=== PATIENT | male | born 1975 | race Caucasian/White ===

== ENCOUNTER 2018-12-30 10:35 | Day surgery (SDC) | payer OTHER ==
[~2018-12-30] VITALS: Ht 177.8 cm; Wt 102.0 kg
[~2018-12-30 10:35] MED LIST: LIDOCAINE 1% MDV 20ML VIAL SQ PRN; LIDOCAINE 2% INJ 100 MG/5 ML SDV (FOR ANES.) As Ordered ONE; LR 1,000 ML IV ONE; PROPOFOL 200 MG/20 ML VIAL As Ordered ONE; ROCURONIUM BROMIDE 50 MG/5 ML VIAL As Ordered ONE; ceFAZolin SOD 2 GM in IV 1 EA IV ONE; fentaNYL 100 MCG/2 ML INJECTION (J3010) As Ordered ONE
[2018-12-30] MEDS ORDERED: ROPIvacaine 0.5% 30 ML INJECTION (J2795 PER 1MG) ONE (10:36)
[2018-12-30] MEDS ORDERED: dexameTHASONE 10 MG/1 ML VIAL PRES.FREE (J1100) ONE (10:36)
[2018-12-30] MEDS ORDERED: MIDAZOLAM INJ 2 MG/2 ML VIAL (J2250) As Ordered ONE (11:48)
[2018-12-30] MEDS ORDERED: fentaNYL 100 MCG/2 ML INJECTION (J3010) As Ordered ONE (11:48)
[2018-12-30] MEDS ORDERED: EPINEPHrine 1MG/ML INJ 30ML MD-VIAL As Ordered ONE (12:03)
[2018-12-30] MEDS ORDERED: LIDOCAINE 1% SDV INJ 30 ML VIAL As Ordered ONE (12:03)
[2018-12-30] MEDS ORDERED: fentaNYL 100 MCG/2 ML INJECTION (J3010) IV ONE (12:30)
[2018-12-30] MEDS ORDERED: MIDAZOLAM INJ 2 MG/2 ML VIAL (J2250) IV ONE (12:30)
[2018-12-30] MEDS ORDERED: METOCLOPRAMIDE INJ 10MG/2ML VIAL (J2765) As Ordered ONE (12:53)
[2018-12-30] MEDS ORDERED: ONDANSETRON 4MG/2ML VIAL (J2405) As Ordered ONE ×2 (13:06→15:01)
[2018-12-30] MEDS ORDERED: GLYCOPYRROLATE INJ 0.2 MG/ML 2 ML VIAL As Ordered ONE (13:06)
[2018-12-30] MEDS ORDERED: NEOSTIGMINE 10 MG/10 ML VIAL (J2710) As Ordered ONE (13:06)
[2018-12-30] MEDS ORDERED: oxyCODONE 5MG TAB PO PRN (15:00)
[2018-12-30] MEDS ORDERED: LR 1,000 ML IV SCH ×2 (15:00→16:00)
[2018-12-30] MEDS ORDERED: fentaNYL 100 MCG/2 ML INJECTION (J3010) IV PRN (15:00)
[2018-12-30] MEDS ORDERED: ONDANSETRON 4MG/2ML VIAL (J2405) IV PRN ×2 (15:00→16:00)
[2018-12-30] MEDS ORDERED: oxyCODONE 5MG TAB As Ordered ONE (15:01)
[2018-12-30] MEDS ORDERED: PERCOCET 5MG/325MG TAB PO PRN (16:00)
[2018-12-30] MEDS ORDERED: ACETAMINOPHEN TAB 650MG DOSE (2X325MG) PO PRN (16:00)
[2018-12-30] MEDS ORDERED: MORPHINE 2 MG/ML 1ML VIAL (J2270) IV PRN (16:00)
[2018-12-30 16:15] VITALS: BP 129/82
--- NOTE | 2018-12-31 14:39 | RO ---
DATE OF PROCEDURE: 12/30/2018 PREOPERATIVE DIAGNOSIS: Left shoulder instability. POSTOPERATIVE DIAGNOSIS: Left shoulder instability (superior labrum anterior to posterior tear plus paralabral cyst). PLANNED PROCEDURE: Left shoulder arthroscopy, decompression of cyst, possible labral repair versus biceps tenodesis. PROCEDURE PERFORMED: Left shoulder arthroscopy, decompression of cyst, superior labrum anterior to posterior repair. SURGEON: James Pratt MD IRON BENDER: RAKAN Berkowitz SPEEDER WORKER: Dr. Drew TYPE OF ANESTHETIC: General anesthetic, plus block. OPERATIVE PREAMBLE: This 43-year-old man had pain in the anterior and posterior aspects of his shoulder. This was associated with some subjective sensation of looseness of the shoulder as well. MRI was significant for a superior labrum tear as well as paralabral cyst. Talked about the pros and cons, risks, and benefits going ahead with shoulder arthroscopy, decompression of the cyst, possible labral repair versus biceps tenodesis. He wished to proceed. I marked the left upper extremity. OPERATIVE REPORT: Patient was brought to operating theater. He was administered general anesthetic. He was placed left lateral decubitus with the aid of a beanbag positioner and traction arm set up with 15 pounds of traction. 2 grams of IV Ancef was administered prior the start of the case. All bony prominences were padded, including an axillary roll. Sequential compression devices (SCDs) were used on the legs and appropriately padded. Limb was prepped and draped in the usual sterile fashion. Once prep solution was thoroughly dry, preoperative time-out was performed to confirm the site, the patient, and the surgery. We began by making a standard posterior portal. I examined the intra-articular aspect of the shoulder. Cartilage appeared normal in the glenoid and the humerus. There was an obvious superior labral anterior to posterior (SLAP) tear. Biceps tendon itself appeared securely affixed to the labrum. There was small crack in the anterior labrum at approximately the 4 o'clock region, but otherwise it was well affixed and not unstable with a normal appearance of the bumper. Posteriorly, again there was a small crack at the labrum but no obvious instability or ability for the probe to displace the labrum or obvious instability or shift of the labrum itself. Undersurface of the rotator cuff tendons appeared normal, including the subscapularis. Anterior portals were made, including just posterior to the biceps tendon as well as just distal to that above the subscapularis tendon. Two cannulas were inserted from an in to out type using spinal needle localization. I probed the type 2 SLAP tear, and it was definitely unstable. There was also one small expansion of the biceps tendon itself coursing posteriorly for anatomic variation. I debrided the undersurface of the superior glenoid underneath the labral SLAP tear. I passed a luggage tag suture just anterior to the biceps tendon root. I drilled for a 2.9 mm PushLock anchor at the 1 o'clock position. I then used a Neviaser portal to place a percutaneous anchor just posterior to the biceps tendon root as well. I drilled and then placed a 3.0 mm PEEK Arthrex SutureTak anchor. I used a 45-degree curved instrument with flaccid loop to pass the stitch circumferentially around the labrum just linux systems administrator to the biceps and then secured this back through the anchor with its typical splice configuration in a knotless fashion, ensuring to not over tension. I then used the 2.9 mm BioComposite Arthrex PushLock anchor and inserted this in the anterior luggage tag type stitch to secure the labrum. It was definitely stable to probing. The other small amount of labral fraying in my estimation was insignificant to this man's main problem. I did undermine the anterior labrum from 3 o'clock above slightly in an effort to decompress the cyst material seen on the MRI. Scope was withdrawn. Portal sites closed with interrupted #3-0 Monocryl sutures. Skin was cleaned with wet-to-dry dressing followed by application of Steri-Strips, Adaptic, 4 x 8 gauze, and ABD dressing with cloth tape. Patient was placed into a sling. Patient was woken up from general anesthetic, transferred off the operating table, and taken to postanesthetic care unit in stable condition. All sponge, needle, instrument counts were correct. Estimated blood loss 100 mL. No complications. PLAN: The patient is to be in a sling. Start pendulum exercises as well as elbow, wrist, and hand excises. Followup up in clinic in few days.
== END 2018-12-30 16:37 | disposition home or self-care (01) ==
LOC: M SDC 10:35
PROVIDERS: ATTEND Orthopaedic Surgery Sports Medicine
DX: M25.312 Other instability, left shoulder (principal); M71.312 Other bursal cyst, left shoulder; S43.402A Unspecified sprain of left shoulder joint, initial encounter; Y92.89 Other specified places as the place of occurrence of the external cause; Y93.9 Activity, unspecified; Y99.9 Unspecified external cause status; Z87.891 Personal history of nicotine dependence
CPT/HCPCS: 29807; C1713; J0690; J1100; J2250; J2405; J2710; J2765; J2795; J3010

== ENCOUNTER 2020-09-14 15:22 | Emergency (ER) | payer OTHER ==
[~2020-09-14] VITALS: Ht 177.8 cm; Wt 102.0 kg
[2020-09-14] MEDS ORDERED: IBUP-1114 PO (15:31)
[2020-09-14] MEDS ORDERED: diphenhydrAMINE 50MG/ML VIAL (J1200) IV STA (17:39)
[2020-09-14] MEDS ORDERED: METOCLOPRAMIDE INJ 10MG/2ML VIAL (J2765 PER 1) IV ONE (17:40)
[2020-09-14] MEDS ORDERED: NS 1,000 ML IV ONE (17:40)
[2020-09-14 18:54] LABS: BASO # 0.1 10^3/uL (0.0-0.2); EOS # 0.2 10^3/uL (0.0-0.5); EOS % 2.8 % (0.0-3.0); HEMATOCRIT 48.5 % (42.0-52.0); HEMOGLOBIN 16.8 g/dl (13.5-17.5); LYMPH # 2.8 10^3/uL (1.5-5.0); LYMPH % 39.3 % (24.0-44.0); MEAN CORPUSCULAR HEMOGLOBIN 32.5 pg (27.0-33.0); MEAN CORPUSCULAR HGB CONC 34.6 g/dl (32.0-36.5); MEAN CORPUSCULAR VOLUME 93.8 fl (80.0-96.0); MONO # 0.6 10^3/uL (0.0-0.8); MONO % 8.1 % (2.0-8.0); NEUTROPHILS # 3.4 10^3/uL (1.5-8.5); NEUTROPHILS % 48.7 % (36.0-66.0); PLATELET COUNT, AUTOMATED 234 10^3/uL (150-450); RED BLOOD COUNT 5.17 10^6/uL (4.30-6.10); WHITE BLOOD COUNT 7.1 10^3/uL (4.0-10.0)
[2020-09-14 19:30] LABS: ACETAMINOPHEN LEVEL < 2.0 UG/ML (10.0-30.0); ALT/SGPT 107 U/L (12-78); BILIRUBIN,DIRECT 0.2 MG/DL (0.0-0.2); BILIRUBIN,TOTAL 0.7 MG/DL (0.2-1.0); BLOOD UREA NITROGEN 12 MG/DL (7-18); CALCIUM LEVEL 9.2 MG/DL (8.5-10.1); CARBON DIOXIDE LEVEL 30 MEQ/L (21-32); CHLORIDE LEVEL 106 MEQ/L (98-107); CREATININE FOR GFR 0.82 MG/DL (0.70-1.30); ETHYL ALCOHOL (ETHANOL) < 0.003 % (0.000-0.010); GLOMERULAR FILTRATION RATE > 60.0 (>60); GLUCOSE, FASTING 85 MG/DL (70-100); POTASSIUM SERUM 4.1 MEQ/L (3.5-5.1); SALICYLATE LEVEL < 1.7 MG/DL (5.0-30.0); SODIUM LEVEL 140 MEQ/L (136-145); TOTAL PROTEIN 7.6 GM/DL (6.4-8.2)
[2020-09-14 22:01] VITALS: BP 128/79
== END 2020-09-14 22:07 | disposition home or self-care (01) ==
LOC: M ED 15:22
DX: H53.123 Transient visual loss, bilateral (principal); R51.9 Headache, unspecified
CPT/HCPCS: 70450; 70544; 70551; 80048; 80076; 80143; 82077; 84443; 85025; 93041; 94760; 96374; 96375; 99284; J1200; J2765